=== PATIENT | male | born 2000 | race Hispanic/Latino ===

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

== ENCOUNTER 2019-10-10 22:43 | Emergency (ER) | payer MEDICAID, OTHER | END 2019-10-10 23:30 | disposition home or self-care (01) | LOC: EDH 22:43 | DX: S61.212A Laceration without foreign body of right middle finger without damage to nail, initial encounter (principal); F10.10 Alcohol abuse, uncomplicated; Z72.0 Tobacco use; W22.8XXA Striking against or struck by other objects, initial encounter; Y93.89 Activity, other specified; Y92.89 Other specified places as the place of occurrence of the external cause; Y99.8 Other external cause status | CPT/HCPCS: 29130; 73130 ==